=== PATIENT | female | born 1980 | race Caucasian/White ===

== ENCOUNTER 2017-07-11 15:18 | Emergency (ER) | payer OTHER ==
[2017-07-11 16:12] VITALS: BP 113/77
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
== END 2017-07-11 18:37 | disposition home or self-care (01) ==
LOC: UCCORT 15:18
DX: S50.11XA Contusion of right forearm, initial encounter (principal); Y08.89XA Assault by other specified means, initial encounter; Y93.9 Activity, unspecified; Y92.89 Other specified places as the place of occurrence of the external cause; Y99.0 Civilian activity done for income or pay; F17.210 Nicotine dependence, cigarettes, uncomplicated
CPT/HCPCS: 99212; G0463